=== PATIENT | female | born 1990 | race Hispanic/Latino ===

== ENCOUNTER 2018-09-22 16:12 | Emergency (ER) | payer MEDICAID | END 2018-09-22 18:17 | disposition home or self-care (01) | LOC: NAV ERS 16:12 | DX: O99.89 Other specified diseases and conditions complicating pregnancy, childbirth and the puerperium (principal); R42 Dizziness and giddiness; Z3A.10 10 weeks gestation of pregnancy | CPT/HCPCS: 99283 ==